=== PATIENT | male | born 1970 | race African-American/Black ===

== ENCOUNTER → 2018-03-11 13:08 | Outpatient (CLI) | payer OTHER, SELFPAY ==
[2018-03-11 14:46] LABS: Calcium 9.3 mg/dL (8.4-10.2); Cholesterol 197 mg/dL (140-199); Estimated Glomerular Filt Rate > 60.0 mL/min (>60); Glucose 99 mg/dL (70-100); HDL Cholesterol 54 mg/dL (40-60); HEMOLYSIS < 15 (0-50); LDL Cholesterol Calculated 117 mg/dL (<100); Potassium 3.8 mmol/L (3.4-5.1); Sodium 140 mmol/L (137-145); Triglycerides 128 mg/dL (35-150)
[2018-03-13 14:29] LABS: PSA Free % 10 % (calc) (> 25); PSA, Total 7.8 ng/mL (< 4.1)
== END ==
PROVIDERS: PCP Family Medicine; Visit Provider Family Medicine
DX: R97.20 Elevated prostate specific antigen [PSA] (principal); I10 Essential (primary) hypertension; E78.5 Hyperlipidemia, unspecified
CPT/HCPCS: 36415; 80048; 80061; 84153; 84154

== ENCOUNTER → 2019-03-23 15:43 | Outpatient (CLI) | payer OTHER, SELFPAY ==
[2019-03-23 18:08] LABS: Add Manual Diff / Slide Review NO; Basophils Absolute Auto 100 /uL (0-100); Basophils Percent Auto 0.7 % (0-2); Eosinophils Absolute Auto 300 /uL (0-450); Eosinophils Percent Auto 2.9 % (2-4); Hemoglobin 14.7 g/dL (13.5-17.5); Lymphocytes Absolute Auto 1900 /uL (1100-4500); Lymphocytes Percent Auto 20.6 % (25-40); Mean Corpuscular HGB Conc 33.3 % (30-36); Mean Corpuscular Hemoglobin 31.6 PG (26-34); Mean Corpuscular Volume 94.8 fL (80-100); Monocytes Absolute Auto 700 /uL (0-900); Monocytes Percent Auto 7.9 % (3-14); Neutrophils Absolute Auto 6200 /uL (1500-7000); Neutrophils Percent Auto 67.9 % (50-75); Platelet Count 193 X10^3/uL (150-400); Red Blood Cell Count 4.64 X10^6/uL (4.5-5.9); Red Cell Distribution Width 14.7 % (11.6-14.8); White Blood Cell Count 9.2 X10^3/uL (4.5-11.0)
[2019-03-23 18:22] LABS: Alanine Aminotransferase 78 IU/L (21-72); Albumin 4.7 g/dL (3.5-5.0); Albumin Globulin Ratio 1.5 (1.0-2.8); Alkaline Phosphatase 54 U/L (38-126); Aspartate Aminotransferase 92 IU/L (17-59); Bilirubin Total 0.6 mg/dL (0.2-1.3); Blood Urea Nitrogen 12 mg/dL (9-20); Calcium 9.7 mg/dL (8.4-10.2); Carbon Dioxide 31 mmol/L (22-32); Chloride 97 mmol/L (98-107); Cholesterol 201 mg/dL (140-199); Estimated Glomerular Filt Rate > 60.0 mL/min (>60); Globulin 3.1 g/dL (1.7-4.1); Glucose 104 mg/dL (70-100); HDL Cholesterol 64 mg/dL (40-60); HEMOLYSIS < 15 (0-50); LDL Cholesterol Calculated 119 mg/dL (<100); Potassium 3.8 mmol/L (3.4-5.1); Sodium 139 mmol/L (137-145); Total Protein 7.8 g/dL (6.3-8.2); Triglycerides 91 mg/dL (35-150)
== END ==
PROVIDERS: Family Provider Family Medicine; PCP Family Medicine; Visit Provider Internal Medicine Cardiovascular Disease
DX: I10 Essential (primary) hypertension (principal); E78.5 Hyperlipidemia, unspecified
CPT/HCPCS: 36415; 80053; 80061; 85025

== ENCOUNTER → 2020-12-01 11:36 | Outpatient (CLI) | payer OTHER, SELFPAY ==
--- NOTE | 2020-12-01 | DI.RAD.S_ITS ---
PROCEDURE: XR KNEE RT 3V INDICATIONS: BILAT KNEE PAIN TECHNIQUE: 3 views of the knee were acquired. COMPARISON: [facility], , KNEE 3V RIGHT, 08/28/2013, 16:24. FINDINGS: Bones: No fractures or dislocations. No suspicious bony lesions. Minimal medial compartment narrowing is present. No periarticular osteophytes or erosions. There is [id number] patellofemoral compartment narrowing with prominent patellar osteophytes. Soft tissues: Moderate joint effusion. No suspicious soft tissue calcifications. IMPRESSION: Arthritic changes most notable in the patellofemoral compartment as above. Dictated by: Bonnie Hmailton M.D. on 12/01/2020 at 13:08 Approved by: Bonnie Hamilton M.D. on 12/01/2020 at 13:09
--- NOTE | 2020-12-01 | DI.RAD.S_ITS ---
PROCEDURE: XR KNEE LT 3V INDICATIONS: BILAT KNEE PAIN TECHNIQUE: 3 views of the knee were acquired. COMPARISON: [facility], , KNEE 3V RIGHT, 08/28/2013, 16:24. FINDINGS: Bones: No fractures or dislocations. No suspicious bony lesions. Minimal medial and mild patellofemoral compartment narrowing. Prominent patellar osteophytes are present. No erosions. Soft tissues: Moderate joint effusion. No suspicious soft tissue calcifications. IMPRESSION: Arthritic changes most notable in the patellofemoral compartment as above. Dictated by: Bonnie Hamilton M.D. on 12/01/2020 at 13:09 Approved by: Bonnie Hamilton M.D. on 12/01/2020 at 13:09
== END ==
PROVIDERS: Referring Provider Student in an Organized Health Care Education/Training Program; Visit Provider Student in an Organized Health Care Education/Training Program
DX: M25.561 Pain in right knee (principal); M25.562 Pain in left knee; M25.461 Effusion, right knee; M25.462 Effusion, left knee
CPT/HCPCS: 73562

== ENCOUNTER → 2021-03-26 12:41 | Outpatient (CLI) | payer OTHER, SELFPAY ==
--- NOTE | 2021-03-26 12:43 | DI.MRI.S_ITS ---
PROCEDURE: MR KNEE LT WO CON INDICATIONS: Sprain of bilateral knees TECHNIQUE: Noncontrast sagittal PD fast spin echo and T2 fast spin echo with fat saturation, sagittal 3-D FLASH with fat saturation; coronal T1 spin echo and PD fast spin echo with fat saturation, and axial PD fast spin echo with fat saturation through the knee. COMPARISON: [facility], MR, KNEE WITHOUT CONTRAST, 09/23/2013, 8:34. [facility], MR, MR KNEE RT WO CON, 03/26/2021, 12:48. [facility], CR, XR KNEE LT 3V, 12/01/2020, 11:47. FINDINGS: Image quality: Excellent. Menisci: Vertical and oblique high signal intensity traverses the medial meniscal body and posterior horn, demonstrating superior and inferior articular surface extension, indicating complex tearing, which has progressed compared to the prior examination. Lateral meniscus is intact. Cruciate ligaments: The anterior and posterior cruciate ligaments appear intact. Medial structures: The medial collateral ligament appears intact. Visualized portions of the pes anserinus tendons appear normal. No abnormal bursal fluid. Lateral structures: The lateral collateral ligament, long and short heads of the biceps femoris tendon appear intact. The popliteus tendon appears normal. Iliotibial band appears normal. Anterior structures: The quadriceps and patellar tendons appear intact. There is mild T2 signal elevation within the patellar tendon, indicating tendinopathy, as before. Patellar alignment is normal. No femoral trochlear dysplasia or ventral trochlear prominence. Moderate edema in the infrapatellar fat pad. Bones and cartilage: No bone marrow contusions or fractures. Scattered subchondral cysts within the patellar apex and medial patellar facet. Mild degenerative marrow edema within the medial femoral trochlea, as well as the anterior weight-bearing aspect of the medial tibial plateau. There is moderate tricompartmental periarticular osteophyte formation. Severe articular cartilage loss diffusely overlies the weight-bearing aspects of the medial femoral condyle and medial tibial plateau. Articular cartilage fibrillation overlies the lateral patellar facet. Moderate articular cartilage loss overlies the medial patellar apex and medial femoral trochlea. Joint space: There is a small knee joint effusion. No Sapin's cyst. Normal appearing synovial plicae are incidentally noted. 20 mm craniocaudal by 47 mm transverse ganglion cyst within the anteroinferior aspect of the infrapatellar fat. IMPRESSION: 1. Tricompartmental osteoarthritis with associated articular cartilage loss. 2. Progressive complex tearing of the medial meniscus. 3. Ganglion cyst within the anteroinferior aspect of the infrapatellar fat. 4. Patellar tendinopathy. 5. Knee joint effusion. Dictated by: Mary Bills M.D. on 03/27/2021 at 10:15 Approved by: Mary Bills M.D. on 03/27/2021 at 10:20
--- NOTE | 2021-03-26 12:43 | DI.MRI.S_ITS ---
PROCEDURE: MR KNEE RT WO CON INDICATIONS: Sprain of bilateral knees TECHNIQUE: Noncontrast sagittal PD fast spin echo and T2 fast spin echo with fat saturation, sagittal 3-D FLASH with fat saturation; coronal T1 spin echo and PD fast spin echo with fat saturation, and axial PD fast spin echo with fat saturation through the knee. COMPARISON: [facility], CR, XR KNEE STANDING BILATERAL, 12/27/2020, 11:26. \ FINDINGS: Image quality: Excellent. Menisci: Vertically oriented linear high T2 signal intensity traverses the posterior horn medial meniscus demonstrating superior and inferior articular surface extension, indicating radial tearing. Lateral meniscus is intact. Cruciate ligaments: The anterior and posterior cruciate ligaments appear intact. There is mild T2 signal elevation along the course of the anterior cruciate ligament, consistent with myxoid degeneration. Medial structures: The medial collateral ligament appears intact. Visualized portions of the pes anserinus tendons appear normal. No abnormal bursal fluid. Lateral structures: The lateral collateral ligament, long and short heads of the biceps femoris tendon appear intact. The popliteus tendon appears normal. Iliotibial band appears normal. Anterior structures: There is chronic ossification of the superior aspect of the patellar tendon at the patellar insertion site. There is mild T2 signal elevation within the patellar tendon. Superimposed small partial-thickness tears within the mid and inferior aspect of the patellar tendon. Mild T2 signal elevation of the quadriceps tendon at the patellar insertion site.. Patellar alignment is normal. No femoral trochlear dysplasia or ventral trochlear prominence. No edema in the infrapatellar fat pad. Bones and cartilage: No bone marrow contusions or fractures. Mild articular cartilage loss diffusely overlies the weight-bearing aspects of the medial femoral condyle and medial tibial plateau. There is moderate to high-grade articular cartilage loss overlying the medial patellar facet. Articular cartilage fibrillation overlies the patellar apex and lateral facet. Joint space: There is a small knee joint effusion. No [place]'s cyst. Normal appearing synovial plicae are incidentally noted. IMPRESSION: 1. Tricompartmental osteoarthritis with associated articular cartilage loss. 2. Medial meniscal tearing. 3. Chronic patellar tendinopathy with superimposed low-grade partial-thickness tearing and ossification. 4. Mild quadriceps tendinopathy. 5. Knee joint effusion. Dictated by: Mary Bills M.D. on 03/27/2021 at 10:11 Approved by: Mary Bills M.D. on 03/27/2021 at 10:15
== END ==
PROVIDERS: PCP Family Medicine; Referring Provider Family Medicine; Visit Provider Family Medicine
DX: S86.911D Strain of unspecified muscle(s) and tendon(s) at lower leg level, right leg, subsequent encounter (principal); S83.92XD Sprain of unspecified site of left knee, subsequent encounter
CPT/HCPCS: 73721

== ENCOUNTER → 2023-01-01 14:41 | Outpatient (CLI) | payer OTHER, SELFPAY ==
--- NOTE | 2023-01-03 09:45 | DIET.CONS ---
Dietary Consultation Note Visit Date: 01/01/23 52 y/o M presenting with pre-diabetes.? Pt would like to learn if there is something more/better he can do for pre-diabetes. Pt reports currently focusing on trying to fix Afib. Per notes, pt has hyperlipidemia. Takes 750 mg of Metformin with first meal (starting Dec 13). Has started using Accu-Chek glucometer - FBG has been >95.? Started doing intermittent fasting December 23, fasts from 8pm to noon.? Pt reports no previous DM education.? Labs:? A1c: 6.3% (pre-diabetes) Average glucose: 122? Diet recall:? B or L: breakfast burrito (sometimes with grapes) OR sandwich (Polish muffin, 1 egg, 1 oz cheddar cheese, ham of bone, avocado or olive oil). When ordering egg McMuffin at [employer], asks for no butter OR 2-3 fried eggs, toast or half bagel with cream cheese or avocado, cheddar cheese. S: occasional snack - nuts OR almond flour crackers with sardines OR string cheese. Occasional fast food chicken OR [employer]. D: meat (chicken, fish, occasionally red meat) with veg and salad OR pizza 1x/week OR chili with ground turkey and a grain (rice or farro).? ETOH: a couple rum (5-6 ounces) and diet cokes (10-11 pm).? dislikes seafood, daughter is pescatarian. Weaknesses: Wienerschnitzel 1x/week (presents as a limited opportunity/novelty). Feels guilty after eating something ?unhealthy.? Enjoys breakfast, does not drink coffee, no sweet tooth, avoids soy.? Barriers to exercise: Afib, knee injury and osteoarthritis, numbness in toes, ingrown toenail. Actively working on these barriers.? Diagnosis: altered nutrition-related laboratory values (A1c) r/t endocrine dysfunction?aeb current pre-diabetes, A1c 6.3%, high glucose 122, no previous T2DM education, diet recall suggesting high CHO intake, barriers to physical activity. Interventions: 1. Educated pt on T2DM and what is happening in the body (insulin, glucose) using a diagram.? 2. Recommend testing BG 1-2 hrs after meals and continue testing FBG levels.? 3. Educated pt on carb counting using handout and discussed sources of CHO. 4. Recommend 15-30 g CHO (1-2 choices) at snacks, 45-60 g CHO (3-4 choices) at meals OR 45 g CHO per meal for wt loss.? 5. Recommend 10-minute walks after meals, especially after higher CHO meals/snacks.? Monitoring/Evaluations: f/u prn Electronically Signed by: Edwina Concepcion 01/03/23 09:45 Clinical Dietitian [address] [address]
== END ==
PROVIDERS: Family Provider Family Medicine; PCP Family Medicine; Referring Provider Family Medicine; Visit Provider Family Medicine
DX: R73.03 Prediabetes (principal); I48.91 Unspecified atrial fibrillation; E78.5 Hyperlipidemia, unspecified; Z71.3 Dietary counseling and surveillance
CPT/HCPCS: 97802

== ENCOUNTER → 2023-01-17 11:18 | Outpatient (CLI) | payer OTHER, SELFPAY ==
[2023-01-17 12:19] LABS: Prostate Specific Antigen < 0.064 ng/mL (0.10-4.00)
== END ==
PROVIDERS: Family Provider Family Medicine; PCP Family Medicine; Referring Provider Specialist; Visit Provider Specialist
DX: Z85.46 Personal history of malignant neoplasm of prostate (principal)
CPT/HCPCS: 36415; 84153

== ENCOUNTER → 2023-02-19 14:56 | Outpatient (CLI) | payer OTHER, SELFPAY ==
--- NOTE | 2023-02-19 14:57 | DI.RAD.S_ITS ---
PROCEDURE: XR KUB INDICATIONS: history of prostate cancer. Right UVJ stone on prior CT. TECHNIQUE: One view of the abdomen acquired. COMPARISON: Outside Facility, RG, CT ABDOMEN/PELVIS WITH CONTRAST, 01/14/2023, 12:46. FINDINGS: No definite renal stone identified radiographically. Nonobstructive bowel gas pattern. Degenerative changes of the lumbar spine and both hips. No definite or obvious suspicious bony lesion identified radiographically. IMPRESSION: No definite renal stone identified radiographically. Dictated by: Elmer Nuñez M.D. on 02/19/2023 at 16:06 Approved by: Elmer Nuñez M.D. on 02/19/2023 at 16:10
== END ==
PROVIDERS: Family Provider Family Medicine; PCP Family Medicine; Referring Provider Specialist; Visit Provider Specialist
DX: M47.816 Spondylosis without myelopathy or radiculopathy, lumbar region (principal); Z85.46 Personal history of malignant neoplasm of prostate
CPT/HCPCS: 74018

== ENCOUNTER → 2023-02-23 09:33 | Outpatient (CLI) | payer OTHER, SELFPAY ==
[2023-03-04 00:38] LABS: Testosterone % Fr + Wkly bound 23.2 % (9.0-46.0); Testosterone Fr+Wkly bound 63.3 ng/dL (40.0-250.0); Testosterone, Total 272.7 ng/dL (264.0-916.0)
== END ==
PROVIDERS: Family Provider Family Medicine; PCP Family Medicine; Referring Provider Specialist; Visit Provider Specialist
DX: R68.82 Decreased libido (principal)
CPT/HCPCS: 36415; 84403

== ENCOUNTER 2024-01-30 00:02 | Emergency (ER) | payer OTHER, SELFPAY ==
[2024-01-30] VITALS (8 sets, daily range): BP systolic 153–180; BP diastolic 80–108; PULSE 82–105; RESP 13–20; TEMP 36.5–36.8; O2SAT 96–98; BMI 37.3
--- NOTE | 2024-01-30 00:33 | PC.NURSE ---
Recent increase of his lisinopril from 5mg to 10mg after his cardiac ablation. Pt also reports some dizziness today.
--- NOTE | 2024-01-30 01:03 | ED_ITS ---
HPI - General Adult General Chief complaint: Hypertension Stated complaint: blood pressure 170/104 Time Seen by Provider: 01/30/24 00:30 Source: patient and family Mode of arrival: Ambulatory History of Present Illness HPI narrative: 53-year-old male. Recently had an ablation for atrial fibrillation however he states that despite this he still has periods of time when he is in AFib. Earlier today he would some epigastric abdominal discomfort. He was told that after the ablation he could potentially have some GI issues. He has been taking his blood pressure at home on a regular basis. He states that at baseline he is normally in the 140 systolic range however today his blood pressures have been more in the 160s to 180s systolic. He contacted his lawn mower sharpener's office who told him just to continue to monitor his blood pressure however this evening when the blood pressure is still were elevated he decided to come in to be evaluated. He currently is asymptomatic without chest pain, shortness of breath, headache, vision changes or lower extremity swelling. Related Data Home Medications Medication Instructions Recorded Confirmed lisinopril 5 mg tablet 5 mg PO DAILY 06/22/20 01/01/24 apixaban 5 mg tablet (Eliquis) 5 mg PO BID 02/01/22 01/01/24 atorvastatin 10 mg tablet 40 mg PO DAILY 02/01/22 01/01/24 metoprolol succinate 25 mg 12.5 mg PO BID 09/24/22 01/01/24 tablet,extended release 24 hr metformin 750 mg tablet,extended 750 mg PO DAILY 01/29/23 01/01/24 release 24 hr Previous Rx's Medication Instructions Recorded celecoxib 200 mg capsule (Celebrex) 200 mg PO DAILY #90 caps 11/19/22 Allergies Allergy/AdvReac Type Severity Reaction Status Date / Time ANIMAL DANDER Allergy Unknown Uncoded 01/01/24 09:11 Review of Systems Review of Systems Narrative: See HPI Patient History Medical History Paresthesia of foot, bilateral Sensory peripheral neuropathy Low libido History of malignant neoplasm of prostate History of chronic atrial fibrillation Degenerative joint disease of knee Erectile dysfunction Prostate cancer Elevated PSA HTN (hypertension) Hyperlipidemia Erectile dysfunction Prostate cancer Surgical History Hx of circumcision H/O vasectomy H/O prostatectomy H/O hernia repair Social History Smoking Status: Never smoker Smoking Status: Never smoker alcohol intake frequency: 0-2 drinks per day Alcohol type: hard liquor Substance Use Type: does not use Exam Initial Vital Signs Initial Vital Signs: Vital Signs Temperature 97.7 F 01/30/24 00:17 Pulse Rate 105 H 01/30/24 00:17 Respiratory Rate 20 01/30/24 00:17 Blood Pressure 180/108 H 01/30/24 00:17 Pulse Oximetry 98 01/30/24 00:17 Oxygen Delivery Method Room Air 01/30/24 00:17 Const General: cooperative, comfortable and No ill appearing HENMT Head: normal to inspection and normocephalic Resp Effort & Inspection: normal respiratory effort Auscultation: clear to auscultation bilaterally Cardio Rate: regular rate Rhythm: abnormal rhythm GI Inspection: normal to inspection and non-distended Skin General: no rashes or lesions noted Neuro General: patient alert, patient awake and patient oriented x3 Extrem General: No edema Course Orders Ordered: ED Orders 01/30/24 00:04 Complete Blood Count AUTO DIFF Stat Comprehensive Metabolic Panel Stat Lipase Stat Troponin & CK Cardiac Panel Stat 01/30/24 00:31 EKG-12 Lead Stat Vital Signs Vital signs: Vital Signs - 8 hr 01/30/24 00:17 01/30/24 00:30 01/30/24 00:45 Temperature 97.7 F Pulse Rate 105 H 99 H Respiratory Rate 20 20 Blood Pressure 180/108 H 162/104 H Pulse Oximetry 98 98 Oxygen Delivery Method Room Air 01/30/24 00:45 01/30/24 01:00 01/30/24 01:00 Temperature Pulse Rate 92 H 94 H Respiratory Rate 17 17 Blood Pressure 176/96 H Pulse Oximetry 96 97 Oxygen Delivery Method Room Air 01/30/24 01:15 01/30/24 01:15 Temperature Pulse Rate 86 Respiratory Rate 15 Blood Pressure 176/80 H Pulse Oximetry 96 Oxygen Delivery Method Medical Decision Making Lab Data Lab results reviewed: Yes I reviewed the patient's lab results. 01/30/24 00:04 01/30/24 00:04 Labs: Lab Results 01/30/24 Range/Units 00:04 WBC 11.3 H (4.5-11.0) X10^3/uL RBC 4.35 L (4.5-5.9) X10^6/uL Hgb 14.3 (13.5-17.5) g/dL Hct 42.6 (41-53) % MCV 98.0 (80-100) fL MCH 33.0 (26-34) PG MCHC 33.6 (30-36) % RDW 13.6 (11.6-14.8) % Plt Count 165 (150-400) X10^3/uL Neut % (Auto) 65.4 (50-75) % Lymph % (Auto) 21.9 L (25-40) % [place] % (Auto) 8.8 (3-14) % Eos % (Auto) 1.9 L (2-4) % Baso % (Auto) 2.0 (0-2) % Neut # (Auto) 7400 H (6403-5047) /uL Lymph # (Auto) 2500 (8645-6330) /uL [place] # (Auto) 1000 H (0-900) /uL Eos # (Auto) 200 (0-450) /uL Baso # (Auto) 200 H (0-100) /uL Sodium 141 (137-145) mmol/L Potassium 3.7 (3.4-5.1) mmol/L Chloride 106 (98-107) mmol/L Carbon Dioxide 26 (22-32) mmol/L BUN 15 (9-20) mg/dL Creatinine 0.82 (0.66-1.25) mg/dL Estimated GFR > 60 (>60) mL/min BUN/Creatinine Ratio 18.3 (6-22) Glucose 105 H (70-100) mg/dL Calcium 9.6 (8.4-10.2) mg/dL Total Bilirubin 0.7 (0.2-1.3) mg/dL AST 41 (17-59) IU/L ALT 48 (<50) IU/L Alkaline Phosphatase 47 (38-126) U/L Total Creatine Kinase 153 (55-170) U/L Troponin I < 0.012 (0.01-0.034) ng/mL Total Protein 8.0 (6.3-8.2) g/dL Albumin 4.7 (3.5-5.0) g/dL Globulin 3.3 (1.7-4.1) g/dL Albumin/Globulin Ratio 1.4 (1.0-2.8) Lipase 81 (23-300) U/L ECG Data Attestation: I personally reviewed and interpreted this ECG as follows: Interpretation: Atrial fibrillation Ventricular rate 95 Left axis deviation QRS [address] T wave changes MDM Narrative Medical decision making narrative: Patient is asymptomatic. He is in AFib but he states that he has not surprised by this as he has been going in and out of AFib since his ablation. He is on apixaban. He is on 10 mg of lisinopril each morning. Despite his elevation in blood pressure patient is not having an acute end-organ issue from this. I discussed all this with him. We discussed potentially increasing his lisinopril to 20 mg in the morning however he may wait and talk with his lawn mower sharpener before doing so. He was given return precautions and follow-up instructions. He expressed understanding and agreement. Discharge Plan Departure Patient Disposition: Home Clinical Impression: Hypertension, Atrial fibrillation Instructions: DI for High Blood Pressure Activity Restrictions/Additional Instructions: Recommend that you continue to take all of your medications as directed. Keep all of your scheduled medical appointments. Return to the emergency department for new or worsening symptoms. Prescriptions: No Action lisinopril 5 mg tablet 5 mg PO DAILY atorvastatin 10 mg tablet 40 mg PO DAILY celecoxib [Celebrex] 200 mg capsule 200 mg PO DAILY Qty: 90 4RF hyaluronate sodium, stabilized 60 mg/3 mL syringe 60 mg intra-articular ONCE Qty: 3 0RF Eliquis 5 mg tablet 5 mg PO BID metoprolol succinate 25 mg tablet extended release 24 hr 12.5 mg PO BID metformin 750 mg tablet extended release 24 hr 750 mg PO DAILY Referrals: Mariano Shine MD [Primary Care Provider] - Stand Alone Forms: Patient Portal/API
[2024-01-30 01:13] LABS: Add Manual Diff / Slide Review NO; Basophils Absolute Auto 200 /uL (0-100); Eosinophils Absolute Auto 200 /uL (0-450); Eosinophils Percent Auto 1.9 % (2-4); Hematocrit 42.6 % (41-53); Hemoglobin 14.3 g/dL (13.5-17.5); Lymphocytes Absolute Auto 2500 /uL (1100-4500); Lymphocytes Percent Auto 21.9 % (25-40); Mean Corpuscular HGB Conc 33.6 % (30-36); Monocytes Absolute Auto 1000 /uL (0-900); Monocytes Percent Auto 8.8 % (3-14); Neutrophils Absolute Auto 7400 /uL (1500-7000); Neutrophils Percent Auto 65.4 % (50-75); Platelet Count 165 X10^3/uL (150-400); Red Blood Cell Count 4.35 X10^6/uL (4.5-5.9); Red Cell Distribution Width 13.6 % (11.6-14.8); White Blood Cell Count 11.3 X10^3/uL (4.5-11.0)
[2024-01-30 01:15] LABS: Alanine Aminotransferase 48 IU/L (<50); Albumin 4.7 g/dL (3.5-5.0); Albumin Globulin Ratio 1.4 (1.0-2.8); Alkaline Phosphatase 47 U/L (38-126); Aspartate Aminotransferase 41 IU/L (17-59); BUN Creatinine Ratio 18.3 (6-22); Bilirubin Total 0.7 mg/dL (0.2-1.3); Blood Urea Nitrogen 15 mg/dL (9-20); Calcium 9.6 mg/dL (8.4-10.2); Carbon Dioxide 26 mmol/L (22-32); Chloride 106 mmol/L (98-107); Creatine Kinase 153 U/L (55-170); Estimated Glomerular Filt Rate > 60 mL/min (>60); Globulin 3.3 g/dL (1.7-4.1); Glucose 105 mg/dL (70-100); HEMOLYSIS < 15 (0-50); Lipase 81 U/L (23-300); Potassium 3.7 mmol/L (3.4-5.1); Sodium 141 mmol/L (137-145)
[2024-01-30 01:26] LABS: Troponin I < 0.012 ng/mL (0.01-0.034)
== END 2024-01-30 02:09 | disposition home or self-care (01) ==
PROVIDERS: Emergency Provider Emergency Medicine; Family Provider Family Medicine; PCP Family Medicine
DX: I10 Essential (primary) hypertension (principal); I48.91 Unspecified atrial fibrillation; R10.13 Epigastric pain; Z79.01 Long term (current) use of anticoagulants
CPT/HCPCS: 36415; 80053; 82550; 83690; 84484; 85025; 93005; 93010; 99283; 99284

== ENCOUNTER → 2024-02-06 07:49 | Outpatient (CLI) | payer OTHER, SELFPAY | PROVIDERS: Family Provider Family Medicine; PCP Family Medicine; Referring Provider Family Medicine; Visit Provider Physical Medicine & Rehabilitation | DX: G62.9 Polyneuropathy, unspecified (principal); R20.2 Paresthesia of skin | CPT/HCPCS: 95886; 95912 ==

== ENCOUNTER → 2024-04-14 09:21 | Outpatient (CLI) | payer OTHER, SELFPAY ==
--- NOTE | 2024-04-14 10:24 | DI.MRI.S_ITS ---
PROCEDURE: MR LUMBAR SPINE WO CON INDICATIONS: L5 radiculopathy TECHNIQUE: Noncontrast sagittal T1 spin echo and T2 fast echo, sagittal STIR, and T2 fast spin echo through the lumbar spine. In cases with scoliosis, additional coronal T2 fast spin echo may be performed. COMPARISON: None. FINDINGS: Image quality: Excellent. Alignment and Curvature: There is normal bony alignment. Bone Marrow: Marrow is of normal overall signal. No acute vertebral body compression fractures. Spinal Cord: Conus medullaris terminates at the L1 level. Visualized cord demonstrates normal signal and size. Paraspinous Soft Tissues: No paravertebral masses. T12-L1: Normal appearance. L1-L2: Right lateral/foraminal disc protrusion minimally effaces the right lateral recess. No central stenosis. Moderate right foraminal stenosis. No left foraminal stenosis L2-L3: Normal appearance. L3-L4: Disc space is maintained. Mild disc bulge and arthropathy combines debris with dorsal epidural fat results in [id number] central stenosis. Moderate left and no right foraminal stenosis L4-L5: Disc space narrowing with broad-based disc bulge and arthropathy results in [id number] central stenosis. Severe right and moderate left foraminal stenosis. L5-S1: Disc space narrowing with a broad-based disc bulge asymmetric to the left has a mass effect in both lateral recesses associated with mild stenosis and displacement of the descending nerve roots, left greater than right. Moderate to severe left and moderate right foraminal stenosis. IMPRESSION: Multilevel degenerative disc disease and arthropathy results in varying degrees of central and foraminal stenosis including mild to moderate central stenosis L3-4 and L4-5 with significant foraminal stenosis L3-4, L4-5 and L5-S1 Approved by: Jeanmarie Ferguson M.D. on 04/14/2024 at 13:15
== END ==
LOC: MRI 09:22
PROVIDERS: Family Provider Family Medicine; PCP Family Medicine; Referring Provider Physical Medicine & Rehabilitation; Visit Provider Physical Medicine & Rehabilitation
DX: M51.16 Intervertebral disc disorders with radiculopathy, lumbar region (principal); M47.26 Other spondylosis with radiculopathy, lumbar region; M48.061 Spinal stenosis, lumbar region without neurogenic claudication; M51.17 Intervertebral disc disorders with radiculopathy, lumbosacral region; M48.07 Spinal stenosis, lumbosacral region
CPT/HCPCS: 72148

== ENCOUNTER → 2024-10-02 09:57 | Outpatient (CLI) | payer OTHER, SELFPAY ==
[2024-10-02 10:21] LABS: Hematocrit 43.7 % (41-53); Hemoglobin 14.9 g/dL (13.5-17.5)
== END ==
PROVIDERS: Family Provider Family Medicine; PCP Family Medicine; Referring Provider Thoracic Surgery (Cardiothoracic Vascular Surgery); Visit Provider Thoracic Surgery (Cardiothoracic Vascular Surgery)
DX: Z01.810 Encounter for preprocedural cardiovascular examination (principal); I48.11 Longstanding persistent atrial fibrillation; D64.9 Anemia, unspecified
CPT/HCPCS: 36415; 85014; 85018